=== PATIENT | female | born 1965 | race Caucasian/White ===

== ENCOUNTER → 2017-06-29 | Outpatient (CLI) | payer OTHER ==
[~2017-06-29] MED LIST: ASPIRIN 325MG325 MG PO; BISOPROLOL 5MG T5 MG PO; FLONASE 50 MCG16 GM; FLOVENT 11110 MCG/PU IH; JANUVIA100 MG PO; LEVALBUTER1.25 MG/0. IH; LEVEMIR100 U/M1 SC; METFORMIN1000 MG PO; NAPROXEN220 MG PO; PREDNISONE 20MG20 MG PO; PROBIOTIC1 EAC5; SPIRONOLACTONE25 M1 PO; VITAMIN D50000 I1 PO; ZANTAC 300300 M1; ZETIA10 MG PO
[2017-06-29 11:03] LABS: HEMOGLOBIN 13.1 g/dL (12.2-16.2); LYMPH # 3.1 K/mm3 (0.7-4.5); LYMPH % 33.8 % (10-50.0)
[2017-06-29 13:09] LABS: BUN 14 mg/dL (7-18); GFR (ESTIMATED) 89 ML/MIN (59-)
[2017-07-05 20:36] LABS: 1,25-Dihydroxy, Vitamin D-2 21 pg/mL (.); 1,25-Dihydroxy, Vitamin D-3 13 pg/mL (.); Total 1,25-Dihydroxy,Vitamin D 34 pg/mL (.)
== END ==
LOC: LAB 10:40
PROVIDERS: Internal Medicine Adolescent Medicine
DX: E11.9 Type 2 diabetes mellitus without complications (principal); E55.9 Vitamin D deficiency, unspecified; M12.9 Arthropathy, unspecified